=== PATIENT | female | born 1960 | race Caucasian/White ===

== ENCOUNTER 2020-05-15 14:06 | Emergency (ER) | payer BC ==
--- NOTE | 2020-05-15 14:34 | EDM.PDOC ---
ED HPI GENERAL MEDICAL PROBLEM - General Chief Complaint: Fever Stated Complaint: SENT FROM CLINIC Time Seen by Provider: 05/15/20 14:31 Source of Information: Reports: Patient, Provider, RN History Limitations: Reports: No Limitations - History of Present Illness INITIAL COMMENTS - FREE TEXT/NARRATIVE: 59 yo female with known lung CA was sent from the oncology clinic today for a fever. Patient states she does not feel feverish and her temps at home have been normal. Patient was not evaluated by a doctor at the oncology clinic. Had a CMP done in the oncology clinic when she checked in with them, all areas on this panel were WNL's. Onset: Today Duration: Minutes: Location: Reports: Generalized Quality: Reports: Other (none) Severity: Mild Improves with: Reports: Other (unsure) Worsens with: Reports: Other (unsure) Context: Reports: Other (See HPI) Associated Symptoms: Reports: Cough (chronic). Denies: Fever/Chills Treatments FATS AND OILS LOADER: Reports: Other (see below) (none) - Related Data Allergies Allergy/AdvReac Type Severity Reaction Status Date / Time No Known Allergies Allergy Verified 05/15/20 14:27 Home Meds: Home Meds Aspirin [Halfprin] 81 mg PO BEDTIME 05/15/20 [History] Cetirizine [ZyrTEC] 10 mg PO DAILY 05/15/20 [History] Cholecalciferol (Vitamin D3) [Vitamin D] 1,000 unit PO BEDTIME 05/15/20 [History] Cyclobenzaprine [Flexeril] 10 mg PO BEDTIME 05/15/20 [History] Fluticasone Propionate [Flovent HFA 110 MCG] 1 spray TOP DAILY 05/15/20 [History] Omeprazole 40 mg PO DAILY 05/15/20 [History] Prochlorperazine [Compazine] 10 mg pe PO Q6HR PRN 05/15/20 [History] ED ROS GENERAL - Review of Systems Review Of Systems: See Below Constitutional: Reports: Chills. Denies: Fever (was unaware) HEENT: Reports: No Symptoms Respiratory: Reports: Cough (getting better) Cardiovascular: Reports: No Symptoms GI/Abdominal: Reports: No Symptoms : Reports: No Symptoms Musculoskeletal: Reports: No Symptoms Skin: Reports: No Symptoms Neurological: Reports: No Symptoms ED EXAM, SEPSIS - Physical Exam Exam: See Below Exam Limited By: No Limitations General Appearance: Alert, WD/WN, No Apparent Distress Eye Exam: Bilateral Eye: Normal Inspection Ears: Normal External Exam, Normal Canal, Hearing Grossly Normal, Normal TMs Nose: Normal Inspection, No Blood Throat/Mouth: Normal Inspection, Normal Lips, Normal Oropharynx, Normal Voice, No Airway Compromise Head: Atraumatic, Normocephalic Neck: Normal Inspection Respiratory/Chest: No Respiratory Distress, Lungs Clear, Normal Breath Sounds, No Accessory Muscle Use Cardiovascular: Regular Rate, Rhythm, No Edema GI/Abdominal Exam: Normal Bowel Sounds, Soft, Non-Tender, No Distention Back: Normal Inspection. No: CVA Tenderness (R), CVA Tenderness (L) Extremities: Normal Inspection, Normal Range of Motion, Non-Tender, No Pedal Edema Neurological: Alert, Oriented, CN II-XII Intact, Normal Cognition, No Motor/Sensory Deficits Psychiatric: Normal Affect, Normal Mood Skin: Warm, Dry, Intact, Normal Color, No Rash Lymphatic: Bilateral: No Adenopathy Course - Vital Signs Last Recorded V/S: Last Vital Signs Temp 37.6 C 05/15/20 14:58 Pulse 118 H 05/15/20 14:33 Resp 16 05/15/20 14:33 BP 125/78 05/15/20 14:33 Pulse Ox 96 05/15/20 14:33 Orthostatic Blood Pressure [ 119/70 Standing] Orthostatic Blood Pressure [ 119/75 Sitting] Orthostatic Blood Pressure [ 127/78 Supine] - Orders/Labs/Meds Orders: Active Orders 24 hr Category Date Time Status Orthostatic Vital Signs [RC] ASDIRECTED Care 05/15/20 14:30 Active Labs: Laboratory Tests 05/15/20 05/15/20 05/15/20 Range/Units 14:30 14:35 14:35 WBC 4.1 L (4.5-11.0) K/uL RBC 3.63 (3.30-5.50) M/uL Hgb 10.7 L (12.0-15.0) g/dL Hct 32.8 L (36.0-48.0) % MCV 90 (80-98) fL MCH 30 (27-31) pg MCHC 33 (32-36) % Plt Count 345 (150-400) K/uL Lactic Acid 0.7 (0.4-2.0) mmol/L Procalcitonin < 0.05 ng/mL Urine Color (YELLOW) Urine Appearance (CLEAR) Urine pH (5.0-8.0) Ur Specific [place] (1.008-1.030) Urine Protein (NEGATIVE) mg/dL Urine Glucose (UA) (NEGATIVE) mg/dL Urine Ketones (NEGATIVE) mg/dL Urine Occult Blood (NEGATIVE) Urine Nitrite (NEGATIVE) Urine Bilirubin (NEGATIVE) Urine Urobilinogen (0.2-1.0) EU/dL Ur Leukocyte Esterase (NEGATIVE) Urine RBC (0-5) Urine WBC (0-5) Ur Epithelial Cells Amorphous Sediment Urine Bacteria Urine Mucus 05/15/20 Range/Units 15:10 WBC (4.5-11.0) K/uL RBC (3.30-5.50) M/uL Hgb (12.0-15.0) g/dL Hct (36.0-48.0) % MCV (80-98) fL MCH (27-31) pg MCHC (32-36) % Plt Count (150-400) K/uL Lactic Acid (0.4-2.0) mmol/L Procalcitonin ng/mL Urine Color Yellow (YELLOW) Urine Appearance Clear (CLEAR) Urine pH 6.0 (5.0-8.0) Ur Specific [place] 1.010 (1.008-1.030) Urine Protein Negative (NEGATIVE) mg/dL Urine Glucose (UA) Negative (NEGATIVE) mg/dL Urine Ketones Negative (NEGATIVE) mg/dL Urine Occult Blood Trace-intact H (NEGATIVE) Urine Nitrite Negative (NEGATIVE) Urine Bilirubin Negative (NEGATIVE) Urine Urobilinogen 0.2 (0.2-1.0) EU/dL Ur Leukocyte Esterase Negative (NEGATIVE) Urine RBC 0-5 (0-5) Urine WBC Not seen (0-5) Ur Epithelial Cells Few Amorphous Sediment Not seen Urine Bacteria Rare Urine Mucus Few Departure - Departure Time of Disposition: 15:26 Disposition: Home, Self-Care 01 Condition: Good Clinical Impression: Normal exam - Discharge Information *PRESCRIPTION DRUG MONITORING PROGRAM REVIEWED*: Not Applicable *COPY OF PRESCRIPTION DRUG MONITORING REPORT IN PATIENT PATRICIA: Not Applicable Referrals: PCP,None [Primary Care Provider] - Forms: ED Department Discharge Additional Instructions: Your labs suggest there is no sign of a bacterial infection. You are cleared to return to continue your oncology appt. Return here as needed. Sepsis Event Note (ED) - Focused Exam Vital Signs: Vital Signs Temp Temp Temp Pulse Resp BP Pulse Ox 05/15/20 14:58 37.6 C 05/15/20 14:57 38.5 C H 05/15/20 14:33 36.9 C 118 H 16 125/78 96 05/15/20 14:17 36.9 C 118 H 16 125/78 96 - My Orders Last 24 Hours: My Active Orders 05/15/20 14:30 Orthostatic Vital Signs [RC] ASDIRECTED - Assessment/Plan Last 24 Hours: My Active Orders 05/15/20 14:30 Orthostatic Vital Signs [RC] ASDIRECTED
== END 2020-05-15 15:41 | disposition home or self-care (01) ==
LOC: JP.ED 14:06
DX: Z00.00 Encounter for general adult medical examination without abnormal findings (principal); Z79.82 Long term (current) use of aspirin; Z79.899 Other long term (current) drug therapy
CPT/HCPCS: 36415; 81001; 83605; 84145; 85027; 99282; 99283

== ENCOUNTER 2021-01-05 13:07 | Emergency (ER) | payer BC ==
--- NOTE | 2021-01-05 13:43 | EDM.PDOC ---
ED HPI GENERAL MEDICAL PROBLEM - General Chief Complaint: Lower Extremity Injury/Pain Stated Complaint: R ANKLE INJURY Time Seen by Provider: 01/05/21 13:30 Source of Information: Reports: Patient, Family History Limitations: Reports: No Limitations - History of Present Illness INITIAL COMMENTS - FREE TEXT/NARRATIVE: 60-year-old female slipped off of a stool while working outside and jammed her right foot into some loose rocks turning her foot. She has significant pain through the forefoot and lateral right foot, no ankle pain or knee pain. Slight swelling is occurring. It is very painful to bear weight, no other injury. Onset: Sudden Duration: Hour(s): (Within the last hour) Location: Reports: Lower Extremity, Right Quality: Reports: Sharp, Stabbing Worsens with: Reports: Other (Weightbearing is painful), Movement Associated Symptoms: Reports: No Other Symptoms Right Ankle Pain Score (Numeric/FACES): 8 - Related Data Allergies Allergy/AdvReac Type Severity Reaction Status Date / Time No Known Allergies Allergy Verified 01/05/21 13:27 Home Meds: Home Meds Aspirin [Halfprin] 81 mg PO BEDTIME 05/15/20 [History] Cetirizine [ZyrTEC] 10 mg PO DAILY 05/15/20 [History] Cholecalciferol (Vitamin D3) [Vitamin D] 1,000 unit PO BEDTIME 05/15/20 [History] Cyclobenzaprine [Flexeril] 10 mg PO BEDTIME 05/15/20 [History] Fluticasone Propionate [Flovent HFA 110 MCG] 1 spray TOP DAILY 05/15/20 [History] Omeprazole 40 mg PO DAILY 05/15/20 [History] Past Medical History HEENT History: Reports: None Cardiovascular History: Reports: Blood Clots/VTE/DVT Respiratory History: Reports: PE, SOB Other Respiratory History: left lung cancer Gastrointestinal History: Reports: GERD RESPIRATORY PHYSICIAN History: Reports: Musculoskeletal History: Reports: None Neurological History: Reports: None Psychiatric History: Reports: None Endocrine/Metabolic History: Reports: None Other Endocrine/Metabolic History: spot on thyroid Hematologic History: Reports: None Immunologic History: Reports: Immunosuppression Oncologic (Cancer) History: Reports: Lung Other Oncologic History: diag Nov 2019 Dermatologic History: Reports: None - Infectious Disease History Infectious Disease History: Reports: Chicken Pox, Influenza, Mumps - Past Surgical History HEENT Surgical History: Reports: None Respiratory Surgical History: Reports: Lung Biopsies GI Surgical History: Reports: Cholecystectomy Female Surgical History: Reports: Section, Tubal Ligation Musculoskeletal Surgical History: Reports: None Social & Family History - Tobacco Use Tobacco Use Status *Q: Never Tobacco User - Caffeine Use Caffeine Use: Reports: Coffee - Recreational Drug Use Recreational Drug Use: No Review of Systems - Review of Systems Review Of Systems: See Below Respiratory: Reports: No Symptoms Musculoskeletal: Reports: Foot Pain Skin: Denies: Bruising Neurological: Reports: No Symptoms Psychiatric: Reports: No Symptoms ED EXAM, GENERAL - Physical Exam Exam: See Below Exam Limited By: No Limitations General Appearance: Alert, No Apparent Distress Respiratory/Chest: No Respiratory Distress Extremities: Other (Exam is otherwise limited to the lower extremities. There is no palpation tenderness around the knees or ankles, she does have tenderness on the top of the foot on the right side with increased pain with palpation of the arch, no deformity or significant swelling is seen, there is no crepitus) Psychiatric: Normal Affect, Normal Mood Skin Exam: Warm, Dry Course - Vital Signs Last Recorded V/S: Last Vital Signs Temp 96.9 F 01/05/21 13:25 Pulse 101 H 01/05/21 13:25 Resp 16 01/05/21 13:25 BP 130/85 01/05/21 13:25 Pulse Ox 100 01/05/21 13:25 - Orders/Labs/Meds Orders: Active Orders 24 hr Category Date Time Status Foot Comp Min 3V Rt [CR] Stat Exams 01/05/21 13:32 Taken DME for Discharge [COMM] Stat Oth 01/05/21 14:15 Ordered - Re-Assessments/Exams Free Text/Narrative Re-Assessment/Exam: 01/05/21 13:44 Right foot x-ray was obtained. 01/05/21 14:15 Right foot x-ray was negative, by discharge the patient was starting to develop some discoloration and bluish swelling over the right lateral top of her foot. This is likely a tendon sprain of the foot, a 3 inch Doc wrap was applied and she was unable to bear weight so crutches were also given. If she is not improving satisfactorily next week, she should recheck with podiatry or orthopedics. Departure - Departure Time of Disposition: 14:20 Disposition: Home, Self-Care Clinical Impression: Sprain of right foot Qualifiers: Encounter type: initial encounter Qualified Code(s): S93.601A - Unspecified sprain of right foot, initial encounter - Discharge Information Instructions: Foot Sprain Referrals: Andrew Carranza [employer] [Primary Care Provider] - Forms: ED Department Discharge Care Plan Goals: Keep wrapped, elevate when able and ibuprofen or naproxen would be helpful with discomfort. Use crutches initially and increase activity as tolerated, consider rechecking late next week if not improving satisfactorily. Sepsis Event Note (ED) - Evaluation Sepsis Screening Result: No Definite Risk - Focused Exam Vital Signs: Vital Signs Temp Pulse Resp BP Pulse Ox 01/05/21 13:25 96.9 F 101 H 16 130/85 100 01/05/21 13:24 96.9 F 101 H 16 130/85 100 - My Orders Last 24 Hours: My Active Orders 01/05/21 13:32 Foot Comp Min 3V Rt [CR] Stat 01/05/21 14:15 DME for Discharge [COMM] Stat - Assessment/Plan Last 24 Hours: My Active Orders 01/05/21 13:32 Foot Comp Min 3V Rt [CR] Stat 01/05/21 14:15 DME for Discharge [COMM] Stat
--- NOTE | 2021-01-07 10:14 | CR ---
Foot Comp Min 3V Rt CLINICAL HISTORY: Injury FINDINGS: There is no acute fracture or dislocation within the foot. No destructive changes are present. IMPRESSION: No acute bony process.
== END 2021-01-05 14:28 | disposition home or self-care (01) ==
LOC: JP.ED 13:07
DX: S93.601A Unspecified sprain of right foot, initial encounter (principal); Z79.82 Long term (current) use of aspirin; X50.1XXA Overexertion from prolonged static or awkward postures, initial encounter; Y99.0 Civilian activity done for income or pay
CPT/HCPCS: 73630-26-RT; 73630-RT; 99283-25

== ENCOUNTER 2023-03-13 07:57 | Day surgery (SDC) | payer BC ==
[2023-03-13] MEDS: Bupivacaine 0.5% 50 ML MDV ONE ×2 (07:49→11:07)
[2023-03-13] MEDS: Lidocaine 1% with EPINEPHrine 1:100,000 50 ML MDV ONE ×2 (07:49→11:07)
[~2023-03-13 07:57] MED LIST: Lidocaine 1% 50 ML MDV ONE
[2023-03-13] MEDS ORDERED: Acetaminophen 500 MG Tab PO ONE (08:10)
[2023-03-13] MEDS ORDERED: Lactated Ringers 1,000 ML IV SCH (08:10)
[2023-03-13] MEDS ORDERED: ceFAZolin 2 GM in Premix Bag 1 BAG IV ONE (08:11)
[2023-03-13 08:35] LABS: HEMOGLOBIN 12.1 g/dL (11.2-15.5); MEAN CORPUSCULAR HEMOGLOBIN 25.7 pg (31.6-35.5); MEAN CORPUSCULAR HGB CONC 31.8 g/dL (31.6-35.5); MEAN CORPUSCULAR VOLUME 80.7 fL (81.4-99.0); RED BLOOD CELL COUNT 4.71 M/uL (3.77-5.24); WHITE BLOOD CELL COUNT,WBC 13.1 K/uL (3.2-11.0)
[2023-03-13 08:55] LABS: A/G RATIO 0.6 (1.2-2.2); ALANINE AMINOTRANSFERASE,ALT 21 U/L (12-78); ALBUMIN 2.9 g/dL (3.4-5.0); ALKALINE PHOSPHATASE 150 U/L (46-116); ASPARTATE AMNIOTRANSFERASE,AST 18 U/L (15-37); BILIRUBIN TOTAL 0.5 mg/dL (0.2-1.0); BLOOD UREA NITROGEN,BUN 14 mg/dL (7-18); CARBON DIOXIDE,CO2 28 mmol/L (21-32); CHLORIDE,CL 100 mmol/L (100-108); CREATININE 0.7 mg/dL (0.6-1.0); EST CRCL DRUG DOSING (CG) 74.98 mL/min; ESTIMATED GFR 98 mL/min (>60); GLUCOSE RANDOM 91 mg/dL (74-106); INR 1.1; POTASSIUM,K 3.6 mmol/L (3.6-5.2); PROTEIN TOTAL,TP 7.5 g/dL (6.4-8.2); PROTHROMBIN TIME 10.9 sec (9.2-10.6); PTT,PARTIAL THROMBOPLSTIN TIME 27.5 sec (21.8-27.3); SODIUM,NA 135 mmol/L (140-148)
[2023-03-13 08:57] LABS: ANION GAP 10.6 mmol/L (5.0-14.0)
[2023-03-13] MEDS ORDERED: Propofol 200 MG/20 ML SDV ONE (10:39)
[2023-03-13] MEDS ORDERED: fentaNYL 100 MCG/2 ML SDV ONE (10:40)
[2023-03-13] MEDS ORDERED: Midazolam 1 MG/ML 2 ML SDV ONE (10:40)
== END 2023-03-13 13:04 | disposition home or self-care (01) ==
LOC: JP.SDS 07:57
PROVIDERS: ATTEND Student in an Organized Health Care Education/Training Program
DX: C34.32 Malignant neoplasm of lower lobe, left bronchus or lung (principal); J44.9 Chronic obstructive pulmonary disease, unspecified; Z79.899 Other long term (current) drug therapy
CPT/HCPCS: 36415; 36561; 77001; 80053; 85027; 85610; 85730; 93005; C1788; J0690; J1642; J2250; J2704; J3010; J3490; J7120; J2001

== ENCOUNTER 2023-06-24 12:14 | Emergency (ER) | payer BC ==
[2023-06-24 14:01] LABS: BASOPHILS PERCENT AUTO 0.2 % (0.1-1.3); EOSINOPHILS ABSOLUTE AUTO 0.03 K/uL (0.00-0.40); EOSINOPHILS PERCENT AUTO 0.4 % (0.0-5.4); HEMATOCRIT 31.7 % (34.3-46.0); HEMOGLOBIN 10.2 g/dL (11.2-15.5); IMMATURE GRAN ABSOLUTE AUTO 0.05 K/uL (0.00-0.23); IMMATURE GRAN PERCENT AUTO 0.6 % (0.0-0.7); LYMPHOCYTES ABSOLUTE AUTO 0.67 K/uL (0.8-3.3); LYMPHOCYTES PERCENT AUTO 7.8 % (11.4-47.7); MEAN CORPUSCULAR HGB CONC 32.2 g/dL (31.6-35.5); MEAN CORPUSCULAR VOLUME 83.9 fL (81.4-99.0); MONOCYTES PERCENT AUTO 5.8 % (3.3-12.6); NEUTROPHILS ABSOLUTE AUTO 7.28 K/uL (1.0-7.6); NEUTROPHILS PERCENT AUTO 85.2 % (40.0-78.1); PLATELET COUNT,PLT 388 K/uL (130-375); RED BLOOD CELL COUNT 3.78 M/uL (3.77-5.24); WHITE BLOOD CELL COUNT,WBC 8.6 K/uL (3.2-11.0)
[2023-06-24 14:02] LABS: BASOPHILS ABSOLUTE AUTO 0.02 K/uL (0.00-0.10)
[2023-06-24] MEDS: Sodium Chloride 0.9% 1,000 ML IV ONE (14:11)
[2023-06-24 14:22] LABS: A/G RATIO 0.5 (1.2-2.2); ALANINE AMINOTRANSFERASE,ALT 422 U/L (12-78); ALBUMIN 2.3 g/dL (3.4-5.0); ASPARTATE AMNIOTRANSFERASE,AST 253 U/L (15-37); BILIRUBIN TOTAL 2.6 mg/dL (0.2-1.0); BLOOD UREA NITROGEN,BUN 11 mg/dL (7-18); CARBON DIOXIDE,CO2 30 mmol/L (21-32); CHLORIDE,CL 95 mmol/L (100-108); CREATININE 0.6 mg/dL (0.6-1.0); ESTIMATED GFR 101 mL/min (>60); GLUCOSE RANDOM 135 mg/dL (74-106); PROTEIN TOTAL,TP 7.3 g/dL (6.4-8.2); SODIUM,NA 132 mmol/L (140-148)
[2023-06-24 14:35] LABS: ALKALINE PHOSPHATASE 1863 U/L (46-116)
[2023-06-24] MEDS: Prochlorperazine 10 MG Tab PO ONE (15:23)
== END 2023-06-24 18:13 | disposition home or self-care (01) ==
LOC: JP.ED 12:14
DX: I95.1 Orthostatic hypotension (principal); C34.32 Malignant neoplasm of lower lobe, left bronchus or lung; E86.0 Dehydration; K21.9 Gastro-esophageal reflux disease without esophagitis; Z79.01 Long term (current) use of anticoagulants; Z79.899 Other long term (current) drug therapy; Z90.49 Acquired absence of other specified parts of digestive tract
CPT/HCPCS: 36415; 80053; 85025; 96360; 96361; 99284; J7030; Q0164